=== PATIENT | female | born 1955 | race Caucasian/White ===

== ENCOUNTER → 2016-09-11 | Outpatient (CLI) | payer OTHER ==
--- NOTE | 2016-09-11 18:07 | US ---
EXAMINATION TYPE: US pelvic complete DATE OF EXAM: 09/11/2016 COMPARISON: NONE CLINICAL HISTORY: D25.9 Fibroids. TECHNIQUE: Transabdominal (TA) Date of LMP: Post menopausal EXAM MEASUREMENTS: Uterus: 11.3 x 6.5 x 5.7 cm Endometrial Stripe: 0.6 cm Right Ovary: not visualized due to bowel gas, atrophy Left Ovary: not visualized due to bowel gas, atrophy 1.Uterus: Anteverted, several fibroid noted largest measuring 4.8 x4.4 x 3.7cm, exophytic fibroid n oted measuring 2.9 x 3.7 x 3.0cm 2. Endometrium: wnl 3. Right Ovary: not visualized due to bowel gas, atrophy 4. Left Ovary: not visualized due to bowel gas, atrophy 5. Bilateral Adnexa: wnl 6. Posterior cul-de-sac: wnl IMPRESSION: FIBROID UTERUS.
== END ==
LOC: RADUSWWP 15:34
PROVIDERS: ATTEND Obstetrics & Gynecology
DX: D25.9 Leiomyoma of uterus, unspecified (principal)
CPT/HCPCS: 76856

== ENCOUNTER → 2016-10-30 | Outpatient (CLI) | payer OTHER ==
[2016-10-30 17:51] LABS: Basophils % (A) 1 %; CHCM 34.2; Eosinophils # (A) 0.1 k/uL (0-0.7); Eosinophils % (A) 2 %; HCT 38.9 % (34.0-46.0); HDW 3.18; HGB 13.6 gm/dL (11.4-16.0); Luc # (Auto) 0.23; Luc % (Auto) 4; Lymphocytes # (A) 2.1 k/uL (1.0-4.8); Lymphocytes % (A) 36 %; MCH 28.8 pg (25.0-35.0); MCV 82.4 fL (80.0-100.0); Mean Platelet Volume 7.6; Monocytes # (A) 0.4 k/uL (0-1.0); Monocytes % (A) 6 %; Neutrophils % (A) 51 %; RBC 4.72 m/uL (3.80-5.40); RDW 14.5 % (11.5-15.5); WBC 5.9 k/uL (3.8-10.6); WBC (Perox) 6.21
== END | disposition home or self-care (01) ==
LOC: LABPAT 17:09
PROVIDERS: ATTEND Obstetrics & Gynecology
DX: Z01.810 Encounter for preprocedural cardiovascular examination (principal); Z01.812 Encounter for preprocedural laboratory examination
CPT/HCPCS: 85025; 93005

== ENCOUNTER → 2016-10-30 | Outpatient (CLI) | payer OTHER ==
--- NOTE | 2016-10-31 10:36 | ECHOF ---
Referral Reason:R60.0 Edema extremities MEASUREMENTS -------- HEIGHT: 165.1 cm WEIGHT: 82.6 kg BP: 140/78 RVIDd: 3.1 cm (< 3.3) IVSd: 1.2 cm (0.6 - 1.1) LVIDd: 4.2 cm (3.9 - 5.3) LVPWd: 1.1 cm (0.6 - 1.1) IVSs: 1.6 cm LVIDs: 3.0 cm LVPWs: 1.6 cm LA Diam: 3.1 cm (2.7 - 3.8) LAESV Index (A-L): 23.98 ml/m Ao Diam: 3.3 cm (2.0 - 3.7) AV Cusp: 2.3 cm (1.5 - 2.6) MV EXCURSION: 14.577 mm (> 18.000) MV EF SLOPE: 69 mm/s (70 - 150) EPSS: 0.6 cm MV E Silver: 0.62 m/s MV DecT: 236 ms MV A Silver: 0.73 m/s MV E/A Ratio: 0.85 RAP: 5.00 mmHg RVSP: 30.01 mmHg FINDINGS -------- Sinus rhythm. This was a technically good study. The left ventricular size is normal. There is borderline concentric left ventricular hypertrophy. Overall left ventricular systolic function is normal with, an EF between 60 - 65 %. The right ventricle is normal in size. Normal LA size by volume 22+/-6 ml/m2. The right atrium is normal in size. The aortic valve is trileaflet and appears structurally normal. There is trace mitral regurgitation. Mild tricuspid regurgitation present. Right ventricular systolic pressure is normal at < 35 mmHg. Trace/mild (physiologic) pulmonic regurgitation. The aortic root size is normal. Normal inferior vena cava with normal inspiratory collapse consistent with estimated right atrial pressure of 5 mmHg. There is no pericardial effusion. CONCLUSIONS -------- 1. Sinus rhythm. 2. There is trace mitral regurgitation. 3. Mild tricuspid regurgitation present. 4. Right ventricular systolic pressure is normal at < 35 mmHg. 5. Trace/mild (physiologic) pulmonic regurgitation. 6. The aortic root size is normal. 7. Normal inferior vena cava with normal inspiratory collapse consistent with estimated right atrial pressure of 5 mmHg. 8. There is no pericardial effusion. 9. This was a technically good study. 10. The left ventricular size is normal. 11. There is borderline concentric left ventricular hypertrophy. 12. Overall left ventricular systolic function is normal with, an EF between 60 - 65 %. 13. The right ventricle is normal in size. 14. Normal LA size by volume 22+/-6 ml/m2. 15. The right atrium is normal in size. 16. The aortic valve is trileaflet and appears structurally normal. FLOAT OPERATOR: Sona Peña RDCS
== END | disposition home or self-care (01) ==
LOC: RADECHMAIN 16:29
PROVIDERS: ATTEND Internal Medicine Nephrology
DX: I07.1 Rheumatic tricuspid insufficiency (principal)
CPT/HCPCS: 93306

== ENCOUNTER → 2016-11-07 | Day surgery (SDC) | payer OTHER ==
[2016-11-04 10:51] VITALS: BMI 30.2
[~2016-11-07] MED LIST: DEXAMETHASONE SOD PHOSPHATE 10 MG/ML 1 ML VIAL IV ONE; LACTATED RINGERS 1,000 ML IV SCH; LIDOCAINE 1% 20 ML VIAL (10MG/ML) FOR IV START INTRADERMA PRN; LIDOCAINE 1% INJ 10MG/ML (20 ML MDV) ONE; MIDAZOLAM 2 MG/2 ML VIAL ONE; ONDANSETRON 4 MG/2 ML VIAL IVP ONE; PROPOFOL 10 MG/ML 20 ML VIAL IV ONE; Pre Op ABX Message 1 EACH MISC MISCELLANE ONE; SCOPOLAMINE 1.5MG/72HR PATCH TRANSDERM ONE; SUCCINYLCHOLINE CHLORIDE 100 MG/5 ML SYR IV ONE; fentaNYL (PF) 50 MCG/ML 2 ML AMP IV PRN; fentaNYL (PF) 50 MCG/ML 2 ML AMP ONE
--- NOTE | 2016-11-07 08:00 | P.HPOB ---
History of Present Illness H&P Date: 11/07/16 Chief Complaint: Postmenopausal bleeding Michelle is a 60-year-old female who has vaginal bleeding. Ultrasound revealed potential fibroids as well as a mildly thickened endometrium of 6 mm. Due to her bleeding we are proceeding with a date D&C with hysteroscopy. She previously also been noted to have any potential mass on her kidney however this is being managed by another physician. She does believe she has a large fibroid within her uterus we'll hopefully be able to better evaluate that in the operating room. She does note that she thinks she stopped having periods for 5 years ago for a full year but then over the last year or 2 she is had irregular spotting. On physical exam vital signs are stable and afebrile. Heart regular, lungs clear, extremities without pain. Abdomen soft and nontender positive bowel sounds are noted extremities without pain. Pelvic exam was unremarkable with to have a full pelvic exam in the operating room. Assessment post menopause bleeding. Plan D&C with hysteroscopy. Past Medical History Past Medical History: Hyperlipidemia, Hypertension, Osteoarthritis (OA), Renal Disease, Thyroid Disorder Additional Past Medical History / Comment(s): hx: post menopausal vaginal bleeding, varicose veins History of Any Multi-Drug Resistant Organisms: None Reported Past Surgical History: Cholecystectomy, Tubal Ligation Additional Past Surgical History / Comment(s): surgery to remove gallstone post cholecystectomy Past Anesthesia/Blood Transfusion Reactions: No Reported Reaction Smoking Status: Never smoker - Past Family History Mother Family Medical History: No Reported History Medications and Allergies Home Medications Medication Instructions Recorded Confirmed Type Acetaminophen Tab [Tylenol Tab] 500 mg PO Q6H PRN 11/04/16 11/07/16 History Ascorbic Acid [Vitamin C] 1,000 mg PO DAILY 11/04/16 11/04/16 History Aspirin [Adult Low Dose Aspirin EC] 81 mg PO DAILY 11/04/16 11/04/16 History Atenolol 25 mg PO DAILY 11/04/16 11/04/16 History Cholecalciferol (Vitamin D3) 2,000 unit PO DAILY 11/04/16 11/04/16 History [Vitamin D3] Fenofibrate,Micronized 134 mg PO DAILY 11/04/16 11/04/16 History [Fenofibrate] Furosemide [Lasix] 40 mg PO DAILY 11/04/16 11/07/16 History Levothyroxine Sodium 112 mcg PO DAILY 11/04/16 11/04/16 History Magnesium 130 mg PO HS 11/04/16 11/04/16 History Vitamin B Complex 1 each PO DAILY 11/04/16 11/04/16 History Allergies Allergy/AdvReac Type Severity Reaction Status Date / Time acetaminophen [From Lortab] Allergy Rash/Hives Verified 11/04/16 10:16 hydrocodone [From Lortab] Allergy Rash/Hives Verified 11/04/16 10:16 Exam Osteopathic Statement: *. No significant issues noted on an osteopathic structural exam other than those noted in the History and Physical/Consult. - Vital Signs Vital signs: Vital Signs Temp Pulse Resp BP Pulse Ox 11/07/16 07:15 98.0 F 76 18 138/83 97
--- NOTE | 2016-11-07 08:37 | P.OP ---
Date of Procedure: 11/07/16 Preoperative Diagnosis: Post menopausal bleeding Postoperative Diagnosis: Same Procedure(s) Performed: Large quantity of tissue obtained at D&C Anesthesia: YU Surgeon: Jhon Serrano Estimated Blood Loss (ml): 8 Pathology: other (Curettings) Condition: stable Disposition: same day Operative Findings: Large quantity of tissue obtained some of the calcified. Description of Procedure: Patient was taken to the operating suite where a general anesthetic was found be adequate. She was prepped and draped in the normal sterile fashion and placed in the dorsal lithotomy position. Initially a weighted speculum was inserted into the vagina the anterior lip of the cervix was then identified grasped with an Allis clamp and was dilated. Camera was then inserted uterus is noted to be grossly enlarged there was a significant amount of tissue noted and suspected polyp noted within the endometrium. Once this tissue was noted camera was removed and sharp curettings of the endometrium were obtained. Significant quantity of endometrial tissue was obtained. It was sent to pathology. Will have first be seen in 1 week sit we can review pathology report and discuss future therapies. Plan - Discharge Summary New Discharge Prescriptions: New Ibuprofen [Motrin] 600 mg PO Q6HR PRN #30 tab PRN Reason: Pain No Action Acetaminophen Tab [Tylenol Tab] 500 mg PO Q6H PRN PRN Reason: Pain Furosemide [Lasix] 40 mg PO DAILY Vitamin B Complex 1 each PO DAILY Magnesium 130 mg PO HS Levothyroxine Sodium 112 mcg PO DAILY Fenofibrate,Micronized [Fenofibrate] 134 mg PO DAILY Cholecalciferol (Vitamin D3) [Vitamin D3] 2,000 unit PO DAILY Atenolol 25 mg PO DAILY Aspirin [Adult Low Dose Aspirin EC] 81 mg PO DAILY Ascorbic Acid [Vitamin C] 1,000 mg PO DAILY Discharge Medication List Acetaminophen Tab [Tylenol Tab] 500 mg PO Q6H PRN 11/04/16 [History] Ascorbic Acid [Vitamin C] 1,000 mg PO DAILY 11/04/16 [History] Aspirin [Adult Low Dose Aspirin EC] 81 mg PO DAILY 11/04/16 [History] Atenolol 25 mg PO DAILY 11/04/16 [History] Cholecalciferol (Vitamin D3) [Vitamin D3] 2,000 unit PO DAILY 11/04/16 [History] Fenofibrate,Micronized [Fenofibrate] 134 mg PO DAILY 11/04/16 [History] Furosemide [Lasix] 40 mg PO DAILY 11/04/16 [History] Levothyroxine Sodium 112 mcg PO DAILY 11/04/16 [History] Magnesium 130 mg PO HS 11/04/16 [History] Vitamin B Complex 1 each PO DAILY 11/04/16 [History] Ibuprofen [Motrin] 600 mg PO Q6HR PRN #30 tab 11/07/16 [Rx] Follow up Appointment(s)/Referral(s): Jhon Serrano DO [Doctor of Osteopathic Medicine] - 1 Week Activity/Diet/Wound Care/Special Instructions: Heavy lifting, limit stairs and driving and pelvic rest. If any high temperatures, heavy bleeding, or severe pain call my office Discharge Disposition: HOME SELF-CARE
[2016-11-07 08:49] VITALS: TEMP 98.4
[2016-11-07 09:18] VITALS: RESP 16
[2016-11-07 10:04] VITALS: BP 129/81; PULSE 68
== END | disposition home or self-care (01) ==
LOC: OR 06:56
PROVIDERS: ATTEND Obstetrics & Gynecology
DX: C55 Malignant neoplasm of uterus, part unspecified (principal); N85.8 Other specified noninflammatory disorders of uterus; E07.9 Disorder of thyroid, unspecified; M19.90 Unspecified osteoarthritis, unspecified site; E78.5 Hyperlipidemia, unspecified; I12.9 Hypertensive chronic kidney disease with stage 1 through stage 4 chronic kidney disease, or unspecified chronic kidney disease; N18.9 Chronic kidney disease, unspecified; Z79.82 Long term (current) use of aspirin; Z79.899 Other long term (current) drug therapy; Z88.5 Allergy status to narcotic agent
CPT/HCPCS: 88305; J2250; J1100; J2405; J2001; J3010; J0330; J2704

== ENCOUNTER → 2016-11-28 | Outpatient (CLI) | payer OTHER ==
[2016-11-28 16:43] LABS: Blood Urea Nitrogen 22 mg/dL (7-17); Non-African American GFR(MDRD) 51 (>60 ml/min/1.73 sqM)
--- NOTE | 2016-11-28 17:01 | XR ---
EXAMINATION TYPE: XR chest 2V DATE OF EXAM: 11/28/2016 COMPARISON: 03/11/2012 HISTORY: Endometrial cancer TECHNIQUE: Frontal and lateral views of the chest are obtained. FINDINGS: Heart and mediastinum are normal. Lungs are clear. Diaphragm is normal. Bony thorax appear s intact. IMPRESSION: Normal chest. No change.
--- NOTE | 2016-11-29 21:03 | CT ---
EXAMINATION TYPE: CT abdomen pelvis wo/w con DATE OF EXAM: 11/28/2016 COMPARISON: NONE HISTORY: 60-year-old female with uterine cancer TECHNIQUE: Contiguous axial scanning of the abdomen and pelvis before and after administration of 80 mL Visipaque 320 IV contrast. Delayed images through the kidneys and coronal/sagittal reconstruction s performed. CT DLP: 1169.8 mGycm Automated exposure control for dose reduction was used. FINDINGS: The heart is normal size without pericardial effusion. Strandy atelectasis at the left base without p leural effusion. No focal lesion. There is pneumobilia with cholecystectomy clips. Portal venous system is patent. No biliary ductal dilatation identified. Adrenal glands, left kidney, spleen, pancreas appear within normal limits. 3 mm nonobstructive calculus upper pole right kidney and subcentimeter hypodensity lower pole right k idney too small for accurate CT characterization, probable cyst. No dilated small bowel, free fluid, or free air. Normal appendix. Oral contrast has progressed to the proximal third sigmoid. There is mild proximal s igmoid diverticulosis without pericolonic inflammatory change. There is a 4.8 cm partially calcified fibroid along the left anterolateral lower uterine segment ther e is intramural and partially subserosal. There is a large rounded left posterior uterine mass measuring 6.6 cm that appears to distort and dis place the endometrium towards the right. This may be the patient's reported endometrial carcinoma but a large fibroid with partial submucosal component is also possible. Ovaries are visualized. No abnor mal fluid collection in the pelvis or pelvic lymphadenopathy. Patulous anal canal. Bones: Sclerotic focus left femoral neck likely bone island. Mild degenerative changes of both hips. Additio nal degenerative disc disease L5-S1 and facet arthropathy mid to lower lumbar spine. No osseous destr uctive process. IMPRESSION: 1. LARGE 6.6 CM ROUND SOFT TISSUE MASS IN THE LEFT CENTRAL UTERUS DISTORTING AND DISPLACING THE ENDOM ETRIUM TOWARDS THE RIGHT. FINDINGS COULD REPRESENT THE PATIENT'S ENDOMETRIAL CARCINOMA OR A FIBROID W ITH PROMINENT SUBMUCOSAL COMPONENT. 2. ADDITIONAL PARTIALLY CALCIFIED 4.8 CM FIBROID ALONG THE LEFT ANTEROLATERAL LOWER UTERINE SEGMENT. THIS IS INTRAMURAL AND PARTIALLY SUBSEROSAL. 3. NO LYMPHADENOPATHY OR OTHERWISE ANY EVIDENCE FOR METASTATIC DISEASE. 4. STATUS POST CHOLECYSTECTOMY. THERE IS PNEUMOBILIA WHICH MAY RELATE TO PRIOR SPHINCTEROTOMY. CLINIC ALLY CORRELATE. 5. NONOBSTRUCTIVE 3 MM RIGHT RENAL CALCULUS AND SIGMOID DIVERTICULOSIS.
== END | disposition home or self-care (01) ==
LOC: RADCTMAIN 16:08
PROVIDERS: ATTEND Obstetrics & Gynecology
DX: N20.0 Calculus of kidney (principal); C54.1 Malignant neoplasm of endometrium; N85.8 Other specified noninflammatory disorders of uterus; D25.9 Leiomyoma of uterus, unspecified; K57.30 Diverticulosis of large intestine without perforation or abscess without bleeding; K83.8 Other specified diseases of biliary tract; Z90.49 Acquired absence of other specified parts of digestive tract
CPT/HCPCS: 82565; 84520; 71020; 74178; 36415; Q9967

== ENCOUNTER → 2017-03-18 | Outpatient (CLI) | payer OTHER ==
[2017-03-18 17:03] LABS: Calcium 10.8 mg/dL (8.4-10.2); Potassium 3.8 mmol/L (3.5-5.1)
== END | disposition home or self-care (01) ==
LOC: LABWHC1 16:08
PROVIDERS: ATTEND Nurse Practitioner Family
DX: N18.3 Chronic kidney disease, stage 3 (moderate) (principal)
CPT/HCPCS: 36415; 80048

== ENCOUNTER 2017-05-23 17:10 | Emergency (ER) | payer OTHER ==
[2017-05-23 17:30] VITALS: RESP 18
[2017-05-23] MEDS ORDERED: SODIUM CHLORIDE 0.9% 1,000 ML IV ONE (17:40)
[2017-05-23] MEDS ORDERED: RX INFO: IV CONTRAST WAS GIVEN 1 EACH MISC MISCELLANE PRN (17:40)
--- NOTE | 2017-05-23 17:50 | ED ---
ENT HPI - General Chief complaint: Dental/Oral Stated complaint: poss dental abcess Time Seen by Provider: 05/23/17 17:31 Source: patient, RN notes reviewed, old records reviewed Mode of arrival: ambulatory Limitations: no limitations - History of Present Illness Initial comments: This is a 7-year-old female present emergency Department chief complaint of 1 day of swelling to the left side of her face. Patient reports that she has been treated for sinusitis and was started on clindamycin yesterday. She took 2 doses of the antibiotic. She reports that she woke up with some swelling in her face. She reports she went to [facility] and they gave her IM Rocephin and sent here for evaluation. They wanted to rule out a Nurse sinus thrombosis. She denies any pain with extra ocular movements. Denies any changes in vision. She reports she woke up with significant swelling in her face but there is swelling went down after getting Benadryl. She denies any fevers or chills. She reports that she has poor dentition but has no significant 2/5 swollen or inflamed. - Related Data Home Medications Medication Instructions Recorded Confirmed Aspirin [Adult Low Dose Aspirin EC] 81 mg PO HS 11/04/16 05/25/17 Atenolol 25 mg PO DAILY 11/04/16 05/25/17 Cholecalciferol (Vitamin D3) 2,000 unit PO DAILY 11/04/16 05/25/17 [Vitamin D3] Fenofibrate,Micronized 134 mg PO DAILY 11/04/16 05/25/17 [Fenofibrate] Furosemide [Lasix] 40 mg PO DAILY 11/04/16 05/25/17 Levothyroxine Sodium 112 mcg PO DAILY 11/04/16 05/25/17 Vitamin B Complex 1 cap PO DAILY 11/04/16 05/25/17 Ascorbic Acid [Vitamin C] 500 mg PO DAILY 05/23/17 05/25/17 Magnesium Oxide [Mag-Ox] 250 mg PO HS 05/23/17 05/25/17 Potassium Chloride [Klor-Con 20] 20 meq PO DAILY 05/23/17 05/25/17 Allergies Allergy/AdvReac Type Severity Reaction Status Date / Time hydrocodone [From Lortab] Allergy Rash/Hives Verified 05/25/17 11:22 ibuprofen [From Motrin] AdvReac CHRONIC Verified 05/25/17 11:22 KIDNEY DISEASE Review of Systems ROS Statement: Those systems with pertinent positive or pertinent negative responses have been documented in the HPI. ROS Other: All systems not noted in ROS Statement are negative. Past Medical History Past Medical History: Cancer, Hyperlipidemia, Hypertension, Thyroid Disorder Additional Past Medical History / Comment(s): CKD, uterine cancer History of Any Multi-Drug Resistant Organisms: None Reported Past Surgical History: Cholecystectomy, Hysterectomy, Tubal Ligation Additional Past Surgical History / Comment(s): D&C Past Psychological History: No Psychological Hx Reported Smoking Status: Never smoker Past Alcohol Use History: None Reported Past Drug Use History: None Reported General Exam - General Exam Comments Initial Comments: Is a 61-year-old female. Alert and oriented. No distress. Limitations: no limitations General appearance: alert, in no apparent distress Head exam: Present: atraumatic, normocephalic, normal inspection Eye exam: Present: normal appearance, PERRL, EOMI, periorbital swelling ( Inferior left-sided paravertebral swelling.). Absent: scleral icterus, conjunctival injection ENT exam: Present: normal exam, mucous membranes moist, other (Patient has superficial swelling and redness over the left side of her face. Swelling extends up to the inferior orbital area. No pain with extraocular eye movements. Pupils are equal and reactive. ). Absent: normal oropharynx (Poor dentition. No focal abscess noted within the oropharynx to attempt drainage.) Neck exam: Present: normal inspection. Absent: tenderness, meningismus, lymphadenopathy Respiratory exam: Present: normal lung sounds bilaterally. Absent: respiratory distress, wheezes, rales, rhonchi, stridor Cardiovascular Exam: Present: regular rate, normal rhythm, normal heart sounds. Absent: systolic murmur, diastolic murmur, rubs, gallop, clicks GI/Abdominal exam: Present: soft, normal bowel sounds. Absent: distended, tenderness, guarding, rebound, rigid Extremities exam: Present: normal inspection, full ROM, normal capillary refill. Absent: tenderness, pedal edema, joint swelling, calf tenderness Back exam: Present: normal inspection Neurological exam: Present: alert, oriented X3, CN II-XII intact Psychiatric exam: Present: normal affect, normal mood Course Vital Signs 05/23/17 05/23/17 05/23/17 17:24 18:11 19:56 Temperature 97.9 F 98 F 97.5 F L Pulse Rate 77 77 74 Respiratory 18 18 18 Rate Blood Pressure 124/78 123/89 140/67 O2 Sat by Pulse 95 95 97 Oximetry Medical Decision Making - Medical Decision Making 61 year old femael presents with left sided facial swelling and dental pain. Patient was seen at [facility] and given IM rocephin. They sent here here for CT scan. She has evidence of periorbital swelling and left facial cellulitis. Patient started on clindamycin from [facility], no pain wiith EOM. Patient CT shows possible small dental abscess, WBC is within normal limitis. Discussed no focal abscess to drain at this time, however patient can be discharged home with dental referral. She will continue clindamycin Rx. Discussed return parameters. - Lab Data Result diagrams: 05/23/17 18:00 05/23/17 18:00 Lab Results 05/23/17 05/23/17 Range/Units 18:00 18:00 WBC 7.2 (3.8-10.6) k/uL RBC 4.73 (3.80-5.40) m/uL Hgb 13.3 (11.4-16.0) gm/dL Hct 39.3 (34.0-46.0) % MCV 83.0 (80.0-100.0) fL MCH 28.1 (25.0-35.0) pg MCHC 33.9 (31.0-37.0) g/dL RDW 15.2 (11.5-15.5) % Plt Count 185 (150-450) k/uL Neutrophils % 79 % Lymphocytes % 10 % Monocytes % 7 % Eosinophils % 2 % Basophils % 0 % Neutrophils # 5.6 (1.3-7.7) k/uL Lymphocytes # 0.7 L (1.0-4.8) k/uL Monocytes # 0.5 (0-1.0) k/uL Eosinophils # 0.2 (0-0.7) k/uL Basophils # 0.0 (0-0.2) k/uL Sodium 144 (137-145) mmol/L Potassium 4.0 (3.5-5.1) mmol/L Chloride 104 (98-107) mmol/L Carbon Dioxide 27 (22-30) mmol/L Anion Gap 13 mmol/L BUN 24 H (7-17) mg/dL Creatinine 1.30 H (0.52-1.04) mg/dL Est GFR (CKD-EPI)AfAm 52 (>60 ml/min/1.73 sqM) Est GFR (CKD-EPI)NonAf 45 (>60 ml/min/1.73 sqM) Glucose 82 (74-99) mg/dL Calcium 10.7 H (8.4-10.2) mg/dL - Radiology Data Radiology results: report reviewed CT facial bones with contrast shows Moderate soft tissue infection or cellulitis to left cheek without extension possibly related to dental periodical abscess. Although abscess is not well defined. Disposition Clinical Impression: Facial cellulitis Disposition: HOME SELF-CARE Condition: Good Instructions: Dental Abscess (ED), Cellulitis (ED) Additional Instructions: [facility] [address] [place] [address] [phone] (existing clients only) For new clients: [phone] 1st consult: $50 (includes Xrays) Usually 30% less then private dentist for visits after. of Dental School Have to pay $50 for Xrays anmd rest is covered. [phone] Patient is to ensure that she is taking her entire antibiotic prescription. Continue Motrin Tylenol for pain and discomfort. Also Benadryl may help with the swelling. If you have no improvement within the next 24-48 hours patient is to return. Referrals: Damian Siegel MD [Primary Care Provider] - 1-2 days Time of Disposition: 19:40
[2017-05-23 18:20] LABS: Basophils % (A) 0 %; Eosinophils # (A) 0.2 k/uL (0-0.7); Eosinophils % (A) 2 %; HCT 39.3 % (34.0-46.0); HGB 13.3 gm/dL (11.4-16.0); Lymphocytes # (A) 0.7 k/uL (1.0-4.8); Lymphocytes % (A) 10 %; MCH 28.1 pg (25.0-35.0); MCHC 33.9 g/dL (31.0-37.0); Monocytes # (A) 0.5 k/uL (0-1.0); Monocytes % (A) 7 %; Neutrophils # (A) 5.6 k/uL (1.3-7.7); Neutrophils % (A) 79 %; Platelet Count 185 k/uL (150-450); RBC 4.73 m/uL (3.80-5.40); RDW 15.2 % (11.5-15.5); WBC 7.2 k/uL (3.8-10.6)
[2017-05-23 18:31] LABS: Calcium 10.7 mg/dL (8.4-10.2)
--- NOTE | 2017-05-23 19:02 | CT ---
EXAMINATION TYPE: CT facial bones w con DATE OF EXAM: 05/23/2017 COMPARISON: NONE HISTORY: Left sided facial swelling, poss dental abscess CT DLP: 723.5 mGycm Automated exposure control for dose reduction was used. CONTRAST: CT scan of the facial bones is performed with IV Contrast, patient injected with 80 mL of Isovue 300. TECHNIQUE: CT scan of the facial bones is performed with IV contrast, axial images are obtained, gwendolyn nal reformatted images are also reviewed. FINDINGS: There are absent molar teeth bilaterally in the mandible. There is moderate fat stranding l eft mandibular level anterolaterally. No well-formed fluid collection is seen. There is extension to the left preorbital region inferior aspect seen best axial image 54 with asymmetric fat stranding and soft tissue swelling. Intraconal fat is preserved. Globes are intact. There is symmetric lucency at level of second premolar tooth bilaterally likely reflecting prominent alveolar nerve foramen. Cavita ry fillings causing streak artifact are seen and second premolar teeth bilaterally. There is mild mucosal thickening inferior left maxillary sinus otherwise paranasal sinuses are clear. Nasal septum is deviated to right of midline. Visualized brain parenchyma shows symmetric frontal lo be atrophy. Visualized airway is patent. There is large cavity involving the right canine tooth coronal image 13 and axial image 33. There are multiple crowns and cavitary fillings in the maxillary teeth. IMPRESSION: There is moderate soft tissue infection or cellulitis left cheek with inferior preorbital extension possibly related to dental periapical abscess though abscess is not well visualized.
[2017-05-23 19:57] VITALS: BP 140/67; PULSE 74; TEMP 97.5
== END 2017-05-23 19:57 | disposition home or self-care (01) ==
LOC: EC 17:10
DX: L03.211 Cellulitis of face (principal); E78.5 Hyperlipidemia, unspecified; E07.9 Disorder of thyroid, unspecified; I12.9 Hypertensive chronic kidney disease with stage 1 through stage 4 chronic kidney disease, or unspecified chronic kidney disease; N18.9 Chronic kidney disease, unspecified; Z85.41 Personal history of malignant neoplasm of cervix uteri; Z79.82 Long term (current) use of aspirin; Z79.899 Other long term (current) drug therapy; Z88.5 Allergy status to narcotic agent; Z88.6 Allergy status to analgesic agent
CPT/HCPCS: 99284; 96360; 36415; 80048; 85025; 87040; 70487; Q9967

== ENCOUNTER 2017-05-25 11:03 | Emergency (ER) | payer OTHER ==
[2017-05-25] MEDS ORDERED: cefTRIAXone IN SWFI 1,000 MG/10 ML SYRINGE IVP STA (12:12)
--- NOTE | 2017-05-25 12:12 | ED ---
ENT HPI - General Chief complaint: Dental/Oral Stated complaint: FACIAL SWELLING Time Seen by Provider: 05/25/17 11:19 Source: patient, RN notes reviewed, old records reviewed Mode of arrival: ambulatory Limitations: no limitations - History of Present Illness Initial comments: This is a 7-year-old female presents department for reevaluation over dental pain and patient swelling. Patient was seen in the emergency department by myself 2 days ago. That she's a facial cellulitis and possible dental abscess. Patient was discharged on clindamycin. She reports that the swelling on her face has subsided. She came today because she started some drainage from her tooth. She is concerned because of the drainage was purulent and foul tasting. - Related Data Home Medications Medication Instructions Recorded Confirmed Aspirin [Adult Low Dose Aspirin EC] 81 mg PO HS 11/04/16 05/25/17 Atenolol 25 mg PO DAILY 11/04/16 05/25/17 Cholecalciferol (Vitamin D3) 2,000 unit PO DAILY 11/04/16 05/25/17 [Vitamin D3] Fenofibrate,Micronized 134 mg PO DAILY 11/04/16 05/25/17 [Fenofibrate] Furosemide [Lasix] 40 mg PO DAILY 11/04/16 05/25/17 Levothyroxine Sodium 112 mcg PO DAILY 11/04/16 05/25/17 Vitamin B Complex 1 cap PO DAILY 11/04/16 05/25/17 Ascorbic Acid [Vitamin C] 500 mg PO DAILY 05/23/17 05/25/17 Magnesium Oxide [Mag-Ox] 250 mg PO HS 05/23/17 05/25/17 Potassium Chloride [Klor-Con 20] 20 meq PO DAILY 05/23/17 05/25/17 Allergies Allergy/AdvReac Type Severity Reaction Status Date / Time hydrocodone [From Lortab] Allergy Rash/Hives Verified 05/25/17 11:22 ibuprofen [From Motrin] AdvReac CHRONIC Verified 05/25/17 11:22 KIDNEY DISEASE Review of Systems ROS Statement: Those systems with pertinent positive or pertinent negative responses have been documented in the HPI. ROS Other: All systems not noted in ROS Statement are negative. Past Medical History Past Medical History: Cancer, Hyperlipidemia, Hypertension, Thyroid Disorder Additional Past Medical History / Comment(s): CKD, uterine cancer History of Any Multi-Drug Resistant Organisms: None Reported Past Surgical History: Cholecystectomy, Hysterectomy, Tubal Ligation Additional Past Surgical History / Comment(s): D&C gall stone removal Past Psychological History: No Psychological Hx Reported Smoking Status: Never smoker Past Alcohol Use History: None Reported Past Drug Use History: None Reported General Exam - General Exam Comments Initial Comments: 7-year-old female. No distress. Limitations: no limitations General appearance: alert, in no apparent distress Head exam: Present: atraumatic, normocephalic, normal inspection Eye exam: Present: normal appearance, PERRL, EOMI. Absent: scleral icterus, conjunctival injection, periorbital swelling ENT exam: Present: normal exam, normal oropharynx, mucous membranes moist, other (Patient has evidence of infected tooth #11. The facial cellulitis is resolving. No evidence of periorbital cellulitis.) Neck exam: Present: normal inspection. Absent: tenderness, meningismus, lymphadenopathy Respiratory exam: Present: normal lung sounds bilaterally. Absent: respiratory distress, wheezes, rales, rhonchi, stridor Cardiovascular Exam: Present: regular rate, normal rhythm, normal heart sounds. Absent: systolic murmur, diastolic murmur, rubs, gallop, clicks GI/Abdominal exam: Present: soft, normal bowel sounds. Absent: distended, tenderness, guarding, rebound, rigid Neurological exam: Present: alert, oriented X3, CN II-XII intact Psychiatric exam: Present: normal affect, normal mood Skin exam: Present: warm, dry, intact, normal color. Absent: rash Course Vital Signs 05/25/17 05/25/17 11:11 12:55 Temperature 97.4 F L 98.0 F Pulse Rate 73 60 Respiratory 187 H 14 Rate Blood Pressure 149/92 132/85 O2 Sat by Pulse 97 97 Oximetry Medical Decision Making - Medical Decision Making 7-year-old feel presents emergency Department chief complaint of drainage around tooth #11. She was diagnosed with facial cellulitis and dental abscess a few days ago. Started on clindamycin. She states that she's pressure teeth she felt a burst in her mouth and had a foul taste afterward. She reports that her cellulitis and swelling is diminishing at this time. Denies any fever or chills. Patient does have what appears to be a popped abscess around tooth # 11. Patient was given IV Rocephin for further antibiotic. Discussed she needs to continue clindamycin. Patient's white blood cell count is normal. All questions answered and return parameters were discussed. - Lab Data Result diagrams: 05/25/17 11:35 05/25/17 11:35 Lab Results 05/25/17 05/25/17 Range/Units 11:35 11:35 WBC 5.3 (3.8-10.6) k/uL RBC 4.44 (3.80-5.40) m/uL Hgb 12.6 (11.4-16.0) gm/dL Hct 36.9 (34.0-46.0) % MCV 83.1 (80.0-100.0) fL MCH 28.4 (25.0-35.0) pg MCHC 34.2 (31.0-37.0) g/dL RDW 15.0 (11.5-15.5) % Plt Count 207 (150-450) k/uL Neutrophils % 77 % Lymphocytes % 11 % Monocytes % 6 % Eosinophils % 4 % Basophils % 0 % Neutrophils # 4.1 (1.3-7.7) k/uL Lymphocytes # 0.6 L (1.0-4.8) k/uL Monocytes # 0.3 (0-1.0) k/uL Eosinophils # 0.2 (0-0.7) k/uL Basophils # 0.0 (0-0.2) k/uL Sodium 143 (137-145) mmol/L Potassium 4.2 (3.5-5.1) mmol/L Chloride 103 (98-107) mmol/L Carbon Dioxide 28 (22-30) mmol/L Anion Gap 12 mmol/L BUN 22 H (7-17) mg/dL Creatinine 1.16 H (0.52-1.04) mg/dL Est GFR (CKD-EPI)AfAm 59 (>60 ml/min/1.73 sqM) Est GFR (CKD-EPI)NonAf 52 (>60 ml/min/1.73 sqM) Glucose 85 (74-99) mg/dL Calcium 10.3 H (8.4-10.2) mg/dL Disposition Clinical Impression: Dental abscess Disposition: HOME SELF-CARE Condition: Good Instructions: Dental Abscess (ED) Additional Instructions: Patient advised to continue the clindamycin. Follow-up with dental clinic. Allow abscess to drain. Do shahnazine and water rinses frequently. [facility] [address] [place] [address] [phone] (existing clients only) For new clients: [phone] 1st consult: $50 (includes Xrays) Usually 30% less then private dentist for visits after. [employer] Have to pay $50 for Xrays anmd rest is covered. [phone] Referrals: Damian Siegel MD [Primary Care Provider] - 1-2 days Time of Disposition: 12:57
[2017-05-25 12:39] LABS: Calcium 10.3 mg/dL (8.4-10.2); Potassium 4.2 mmol/L (3.5-5.1)
[2017-05-25 12:48] LABS: Basophils % (A) 0 %; Eosinophils # (A) 0.2 k/uL (0-0.7); Eosinophils % (A) 4 %; HCT 36.9 % (34.0-46.0); HGB 12.6 gm/dL (11.4-16.0); Lymphocytes # (A) 0.6 k/uL (1.0-4.8); Lymphocytes % (A) 11 %; MCH 28.4 pg (25.0-35.0); MCHC 34.2 g/dL (31.0-37.0); MCV 83.1 fL (80.0-100.0); Mean Platelet Volume 7.5; Monocytes # (A) 0.3 k/uL (0-1.0); Monocytes % (A) 6 %; Neutrophils # (A) 4.1 k/uL (1.3-7.7); Neutrophils % (A) 77 %; Platelet Count 207 k/uL (150-450); RBC 4.44 m/uL (3.80-5.40); WBC 5.3 k/uL (3.8-10.6)
[2017-05-25 12:56] VITALS: BP 132/85; PULSE 60; RESP 14
[2017-05-25 12:57] VITALS: TEMP 98
== END 2017-05-25 13:33 | disposition home or self-care (01) ==
LOC: EC 11:03
DX: K04.7 Periapical abscess without sinus (principal); L03.211 Cellulitis of face; E07.9 Disorder of thyroid, unspecified; I10 Essential (primary) hypertension; Z88.5 Allergy status to narcotic agent; Z88.6 Allergy status to analgesic agent; Z79.82 Long term (current) use of aspirin; Z79.899 Other long term (current) drug therapy
CPT/HCPCS: 96374; 99283; 36415; 80048; 85025; J0696

== ENCOUNTER → 2017-10-05 | Outpatient (CLI) | payer OTHER ==
--- NOTE | 2017-10-05 21:26 | CT ---
EXAMINATION TYPE: CT ChestAbdPelvis w con DATE OF EXAM: 10/05/2017 COMPARISON: CT abdomen and pelvis November 28, 2016. HISTORY: Endometrial cancer. CT DLP: 900.5 mGycm. Automated Exposure Control for Dose Reduction was Utilized. CONTRAST: CT scan of the thorax, abdomen and pelvis is performed with oral and with IV Contrast, patient inject ed with 80 mL of Isovue 300. FINDINGS: LUNGS: The lungs are grossly clear, there is no concerning parenchymal mass or nodule identified. T here is no pleural effusion or pneumothorax seen. The tracheobronchial tree is patent. MEDIASTINUM: There are no greater than 1 cm hilar or mediastinal lymph nodes. No pericardial effusi on is seen. OTHER: Dense fibroglandular tissue is noted throughout both breasts. LIVER/GB: Liver remains diffusely low dense consistent with fatty infiltration. Cholecystectomy clips are redemonstrated. Central intrahepatic pneumobilia is again seen. PANCREAS: No significant abnormality is seen. SPLEEN: No significant abnormality is seen. ADRENALS: No significant abnormality is seen. KIDNEYS: Stable 2 mm calculus midpole level right kidney posteriorly axial image 68. Symmetric cortic al medullary uptake and excretion from both kidneys without evidence of hydronephrosis bilaterally. BOWEL: The oral contrast reaches level of proximal transverse colon. Normal-appearing appendix is see n from base of cecum. There is no suspicious small or large bowel dilatation. There are a few scatter ed diverticula throughout the colon. GENITAL ORGANS: Uterus is surgically absent. A few scattered pelvic phleboliths are seen. LYMPH NODES: No greater than 1cm abdominal or pelvic lymph nodes are appreciated. OSSEOUS STRUCTURES: Some facet arthropathy lower lumbar levels is present. Stable small sclerotic foc us left femoral neck coronal image 50. No new osseous lesions are evident. OTHER: No significant additional abnormality is seen. IMPRESSION: Interval hysterectomy. No suspicious new mass or adenopathy is identified to suggest meta static malignancy.
== END | disposition home or self-care (01) ==
LOC: RADCTMAIN 16:39
PROVIDERS: ATTEND Obstetrics & Gynecology
DX: C54.1 Malignant neoplasm of endometrium (principal); Z90.710 Acquired absence of both cervix and uterus
CPT/HCPCS: 82565; 84520; 71260; 74177; 36415; Q9967

== ENCOUNTER → 2017-12-03 | Outpatient (CLI) | payer OTHER ==
--- NOTE | 2017-12-04 09:35 | NM ---
EXAMINATION TYPE: NM parathyroid w/spect DATE OF EXAM: 12/03/2017 COMPARISON: NONE HISTORY: Hx of Hypercalcemia. Fatigue. TECHNIQUE: Following administration of 23.8 mCi Tc99m Sestamibi. Anterior projection images of the neck and ches t were obtained 10 minutes and 3 hours post injection. SPECT images of the neck and chest were obtai silver and reconstructed in three axes. FINDINGS: There is heterogenous uptake noted throughout the thyroid gland on the immediate radiotracer images. The subsequent 3 hour delayed images reveal focal areas of increased uptake overlying the upper thyro id lobes bilaterally which may reflect parathyroid adenomas. This is seen best on the SPECT images. N o mediastinal uptake is identified at this time. IMPRESSION: Findings suggest parathyroid adenomas upper poles of the thyroid lobes bilaterally. Correlate clinica lly.
== END | disposition home or self-care (01) ==
LOC: RADNMMAIN 11:25
PROVIDERS: ATTEND Internal Medicine Nephrology
DX: E21.0 Primary hyperparathyroidism (principal)
CPT/HCPCS: 78071; A9500

== ENCOUNTER → 2018-04-19 | Outpatient (CLI) | payer OTHER ==
--- NOTE | 2018-04-19 17:48 | CT ---
EXAMINATION TYPE: CT abdomen pelvis w con DATE OF EXAM: 04/19/2018 HISTORY: Pelvic pain, history of uterine cancer. CT DLP: 812.9mGycm Automated Exposure Control for Dose Reduction was Utilized. CONTRAST: CT scan of the abdomen and pelvis is performed with IV Contrast, patient injected with 80ml mL of Iso emma 300. COMPARISON: CT abdomen pelvis October 05, 2017 FINDINGS: LUNG BASES: Heart size is stable and upper limits of normal. LIVER/GB: Cholecystectomy clips are redemonstrated. Liver remains diffusely low dense consistent with fatty infiltration. Some central pneumobilia is again seen. PANCREAS: No significant abnormality is seen. SPLEEN: No significant abnormality is seen. ADRENALS: No significant abnormality is seen. KIDNEYS: Stable 3 mm calculus posteriorly upper to mid pole level right kidney axial image 37. BOWEL: Oral contrast reaches level of hepatic flexure. There is no suspicious small or large bowel di latation. Scattered pelvic phleboliths are seen bilaterally. Normal-appearing appendix seen lateral m argin of cecum coronal image 48 contrast filled. UTERUS/ADNEXA: Uterus is surgically absent similar to prior. LYMPH NODES: No greater than 1cm abdominal or pelvic lymph nodes are appreciated. OSSEOUS STRUCTURES: Severe disc space narrowing with vacuum disc phenomenon L5-S1 level is redemonstr ated. Stable sclerotic focus left femoral neck coronal image 52 favors benign bone island. Some facet arthropathy lower lumbar spine is redemonstrated. OTHER: No significant additional abnormality is seen. IMPRESSION: No significant new or acute finding is seen to account for patient's clinical symptoms of pelvic pain.
== END | disposition home or self-care (01) ==
LOC: RADCTMAIN 15:57
PROVIDERS: ATTEND Obstetrics & Gynecology
DX: C54.1 Malignant neoplasm of endometrium (principal)
CPT/HCPCS: 74177; Q9967

== ENCOUNTER → 2018-11-09 | Outpatient (CLI) | payer OTHER ==
--- NOTE | 2018-11-10 08:53 | CT ---
EXAMINATION TYPE: CT ChestAbdPelvis w con DATE OF EXAM: 11/09/2018 COMPARISON: CT abdomen and pelvis April 19, 2018 and older CTs HISTORY: Endometrial cancer progress study. CT DLP: 773.7 mGycm. Automated Exposure Control for Dose Reduction was Utilized. CONTRAST: CT scan of the thorax, abdomen and pelvis is performed with oral and with IV Contrast, patient inject ed with 80cc mL of Isovue 300. FINDINGS: LUNGS: Motion artifact degradation is seen making evaluation suboptimal particularly for subcentimete r nodules for reference upper lungs axial images 9 through 20. No suspicious masses are seen. Lungs a re clear without pleural effusion or pneumothorax. MEDIASTINUM: There are no greater than 1 cm hilar or mediastinal lymph nodes. No cardiomegaly or pe ricardial effusion is seen. LIVER/GB: Cholecystectomy clips are redemonstrated. Liver remains low dense consistent with diffuse f atty infiltration. Central pneumobilia redemonstrated. PANCREAS: No significant abnormality is seen. SPLEEN: No significant abnormality is seen. ADRENALS: No significant abnormality is seen. KIDNEYS: Stable subcentimeter cyst anterolaterally mid to lower pole of the right kidney axial image 73. Stable 2 mm calculus posteriorly upper midpole level right kidney approximately 65. Circumaortic left renal vein which is normal variant. BOWEL: Oral contrast reaches the level of the distal transverse colon. Slightly suboptimal evaluation of distal ball. No suspicious small or large bowel dilatation. Occasional scattered colonic divertic lorelei most prominent in the sigmoid colon. No convincing CT evidence for acute diverticulitis. GENITAL ORGANS: Uterus is surgically absent. Occasional pelvic phleboliths. No new suspicious pelvic mass. LYMPH NODES: No greater than 1cm abdominal or pelvic lymph nodes are appreciated. OSSEOUS STRUCTURES: Stable sclerotic focus left femur femoral neck coronal image 45 favoring benign b one island. Mild to moderate degenerative change of both hips. Multilevel disc space narrowing lumbar spine moderate to severe at lumbosacral junction with vacuum disc phenomenon redemonstrated. OTHER: No significant additional abnormality is seen. IMPRESSION: No new mass or adenopathy identified to suggest neoplastic recurrence.
== END | disposition home or self-care (01) ==
LOC: RADCTMAIN 15:39
PROVIDERS: ATTEND Obstetrics & Gynecology
DX: C54.1 Malignant neoplasm of endometrium (principal)
CPT/HCPCS: 82565; 84520; 71260; 74177; 36415; Q9967

== ENCOUNTER 2020-10-13 20:35 | Emergency (ER) | payer OTHER ==
[2020-10-13 20:44] VITALS: RESP 18; TEMP 98.7
--- NOTE | 2020-10-13 21:07 | ED ---
ENT HPI - General Chief complaint: Dental/Oral Stated complaint: mouth swelling Time Seen by Provider: 10/13/20 20:51 Source: patient Mode of arrival: ambulatory Limitations: no limitations - History of Present Illness Initial comments: 64-year-old female patient presents to the emergency department today for evaluation of left upper dental pain and facial swelling. States symptoms started yesterday and have worsened today. States she feels like her gums are swelling as well. Denies any fever or chills. Denies any trismus or difficulty swelling. Denies any nausea or vomiting. - Related Data Home Medications Medication Instructions Recorded Confirmed Aspirin [Adult Low Dose Aspirin EC] 81 mg PO HS 11/04/16 05/25/17 Cholecalciferol (Vitamin D3) 2,000 unit PO DAILY 11/04/16 05/25/17 [Vitamin D3] Fenofibrate,Micronized 134 mg PO DAILY 11/04/16 05/25/17 [Fenofibrate] Furosemide [Lasix] 40 mg PO DAILY 11/04/16 05/25/17 Levothyroxine Sodium 112 mcg PO DAILY 11/04/16 05/25/17 Vitamin B Complex 1 cap PO DAILY 11/04/16 05/25/17 atenoloL 25 mg PO DAILY 11/04/16 05/25/17 Ascorbic Acid [Vitamin C] 500 mg PO DAILY 05/23/17 05/25/17 Magnesium Oxide [Mag-Ox] 250 mg PO HS 05/23/17 05/25/17 Potassium Chloride [Klor-Con 20] 20 meq PO DAILY 05/23/17 05/25/17 Previous Rx's Medication Instructions Recorded Amoxic-Pot Clav 875-125Mg 1 tab PO Q12HR #20 tablet 10/13/20 [Augmentin 875-125] Allergies Allergy/AdvReac Type Severity Reaction Status Date / Time hydrocodone [From Lortab] Allergy Rash/Hives Verified 10/13/20 20:44 ibuprofen [From Motrin] AdvReac CHRONIC Verified 10/13/20 20:44 KIDNEY DISEASE Review of Systems ROS Statement: Those systems with pertinent positive or pertinent negative responses have been documented in the HPI. ROS Other: All systems not noted in ROS Statement are negative. Past Medical History Past Medical History: Cancer, Hyperlipidemia, Hypertension, Thyroid Disorder Additional Past Medical History / Comment(s): CKD, uterine cancer History of Any Multi-Drug Resistant Organisms: None Reported Past Surgical History: Cholecystectomy, Hysterectomy, Tubal Ligation Additional Past Surgical History / Comment(s): D&C gall stone removal Past Psychological History: No Psychological Hx Reported Smoking Status: Never smoker Past Alcohol Use History: None Reported Past Drug Use History: None Reported General Exam Limitations: no limitations General appearance: alert, in no apparent distress, other (This is a well- developed, well-nourished adult female patient in no acute distress. Vital signs upon presentation are temperature 98.7F, pulse 91, respirations 18, blood pressure 140/83, pulse ox 95% on room air.) ENT exam: Present: mucous membranes moist, other (Gingival erythema and hyperplasia, very poor dentition with multiple broken teeth down to the gumline. No evidence for drainable abscess.) Respiratory exam: Present: normal lung sounds bilaterally. Absent: respiratory distress, wheezes, rales, rhonchi, stridor Cardiovascular Exam: Present: regular rate, normal rhythm, normal heart sounds. Absent: systolic murmur, diastolic murmur, rubs, gallop, clicks Neurological exam: Present: alert, oriented X3, CN II-XII intact Psychiatric exam: Present: normal affect, normal mood Skin exam: Present: warm, dry, intact, normal color. Absent: rash Course Vital Signs 10/13/20 10/13/20 20:42 21:09 Temperature 98.7 F Pulse Rate 91 85 Respiratory 18 18 Rate Blood Pressure 140/83 148/90 O2 Sat by Pulse 95 96 Oximetry Medical Decision Making - Medical Decision Making 64-year-old female patient presents to the emergency department today for evaluation of left upper dental pain and swelling. Physical examination did reveal very poor dentition no evidence for drainable abscess. She was started on Augmentin given Tylenol codeine starter pack. She is instructed to follow-up with dentistry as soon as possible. Return parameters were discussed in detail. She verbalizes understanding and agrees with this plan. Pending is Dr. Puri. Disposition Clinical Impression: Dental abscess Disposition: HOME SELF-CARE Condition: Good Instructions (If sedation given, give patient instructions): Dental Abscess (ED), Toothache (ED) Additional Instructions: Complete antibiotics in full. Follow up with dentist for evaluation as soon as possible. Return for any new, worsening, or concerning symptoms. Prescriptions: Amoxic-Pot Clav 875-125Mg [Augmentin 875-125] 1 tab PO Q12HR #20 tablet Is patient prescribed a controlled substance at d/c from ED?: No Referrals: Damian Siegel MD [Primary Care Provider] - 1-2 days Time of Disposition: 21:06
[2020-10-13 21:10] VITALS: BP 148/90; PULSE 85
[2020-10-13] MEDS: ACET/COD 300 MG/30 MG STARTER PACK 6 TAB BTL PO STA (21:11)
[2020-10-13] MEDS: AMOXIC-POT CLAV 875MG STARTER PACK 2 TAB BTL PO STA (21:11)
== END 2020-10-13 21:16 | disposition home or self-care (01) ==
LOC: EC 20:35
DX: K04.7 Periapical abscess without sinus (principal); S02.5XXA Fracture of tooth (traumatic), initial encounter for closed fracture; I12.9 Hypertensive chronic kidney disease with stage 1 through stage 4 chronic kidney disease, or unspecified chronic kidney disease; N18.9 Chronic kidney disease, unspecified; E78.5 Hyperlipidemia, unspecified; Z79.82 Long term (current) use of aspirin; Z85.42 Personal history of malignant neoplasm of other parts of uterus; Z88.5 Allergy status to narcotic agent; Z88.6 Allergy status to analgesic agent; Z90.49 Acquired absence of other specified parts of digestive tract; X58.XXXA Exposure to other specified factors, initial encounter
CPT/HCPCS: 99282

== ENCOUNTER 2021-02-27 08:13 | Emergency (ER) | payer OTHER ==
[2021-02-27 08:19] VITALS: BP 145/85; PULSE 117; RESP 18; TEMP 97.9
--- NOTE | 2021-02-27 09:29 | ED ---
ENT HPI - General Chief complaint: ENT Stated complaint: Poss Sinus Infection Time Seen by Provider: 02/27/21 08:20 Source: patient, RN notes reviewed Mode of arrival: ambulatory Limitations: no limitations - History of Present Illness Initial comments: 65-year-old female presents emergency Department with chief complaint for upper dentition pain, sinus pressure. Patient states that symptoms started primarily yesterday. Patient states her teeth feel a bit but it was causing some discomfort. Patient denies any fever or chills no cough or cold like symptoms otherwise. - Related Data Home Medications Medication Instructions Recorded Confirmed Aspirin [Adult Low Dose Aspirin EC] 81 mg PO HS 11/04/16 05/25/17 Cholecalciferol (Vitamin D3) 2,000 unit PO DAILY 11/04/16 05/25/17 [Vitamin D3] Fenofibrate,Micronized 134 mg PO DAILY 11/04/16 05/25/17 [Fenofibrate] Furosemide [Lasix] 40 mg PO DAILY 11/04/16 05/25/17 Levothyroxine Sodium 112 mcg PO DAILY 11/04/16 05/25/17 Vitamin B Complex 1 cap PO DAILY 11/04/16 05/25/17 atenoloL 25 mg PO DAILY 11/04/16 05/25/17 Ascorbic Acid [Vitamin C] 500 mg PO DAILY 05/23/17 05/25/17 Magnesium Oxide [Mag-Ox] 250 mg PO HS 05/23/17 05/25/17 Potassium Chloride [Klor-Con 20] 20 meq PO DAILY 05/23/17 05/25/17 Previous Rx's Medication Instructions Recorded Amoxic-Pot Clav 875-125Mg 1 tab PO Q12HR #20 tablet 10/13/20 [Augmentin 875-125] Amoxicillin/Potassium Clav 1 tab PO Q12HR #20 tab 02/27/21 [Augmentin 875-125 Tablet] Allergies Allergy/AdvReac Type Severity Reaction Status Date / Time hydrocodone [From Lortab] Allergy Rash/Hives Verified 02/27/21 08:17 ibuprofen [From Motrin] AdvReac CHRONIC Verified 02/27/21 08:17 KIDNEY DISEASE Review of Systems ROS Statement: Those systems with pertinent positive or pertinent negative responses have been documented in the HPI. ROS Other: All systems not noted in ROS Statement are negative. Past Medical History Past Medical History: Cancer, Hyperlipidemia, Hypertension, Thyroid Disorder Additional Past Medical History / Comment(s): CKD, uterine cancer History of Any Multi-Drug Resistant Organisms: None Reported Past Surgical History: Cholecystectomy, Hysterectomy, Tubal Ligation Additional Past Surgical History / Comment(s): D&C gall stone removal Past Psychological History: No Psychological Hx Reported Smoking Status: Never smoker Past Alcohol Use History: None Reported Past Drug Use History: None Reported General Exam Limitations: no limitations General appearance: alert, in no apparent distress Head exam: Present: atraumatic, normocephalic, normal inspection Eye exam: Present: normal appearance, PERRL, EOMI. Absent: scleral icterus, conjunctival injection, periorbital swelling ENT exam: Present: mucous membranes moist, TM's normal bilaterally, other (sinus tenderness). Absent: normal exam, normal oropharynx (Very poor dentition) Neck exam: Present: normal inspection, full ROM. Absent: tenderness, meningism us, lymphadenopathy Respiratory exam: Present: normal lung sounds bilaterally. Absent: respiratory distress, wheezes, rales, rhonchi, stridor Cardiovascular Exam: Present: regular rate (Heart rate 88 on exam), normal rhythm, normal heart sounds. Absent: systolic murmur, diastolic murmur, rubs, gallop, clicks Course Vital Signs 02/27/21 08:17 Temperature 97.9 F Pulse Rate 117 H Respiratory 18 Rate Blood Pressure 145/85 O2 Sat by Pulse 95 Oximetry Medical Decision Making - Medical Decision Making Patient's symptoms may related to underlying dental infection as she has very poor dentition. Patient started on antibiotics return parameters discussed. - Lab Data Lab Results 02/27/21 Range/Units 08:33 Coronavirus (PCR) Not Detected (Not Detectd) Disposition Clinical Impression: Sinusitis, Dental infection Disposition: HOME SELF-CARE Condition: Stable Instructions (If sedation given, give patient instructions): Sinusitis (ED) Additional Instructions: Please return to the Emergency Department if symptoms worsen or any other concerns. Prescriptions: Amoxicillin/Potassium Clav [Augmentin 875-125 Tablet] 1 tab PO Q12HR #20 tab Is patient prescribed a controlled substance at d/c from ED?: No Referrals: Alysa Hector [Primary Care Provider] - 1-2 days Time of Disposition: 09:29
== END 2021-02-27 09:43 | disposition home or self-care (01) ==
LOC: EC 08:13
DX: J32.9 Chronic sinusitis, unspecified (principal); K04.7 Periapical abscess without sinus; E78.5 Hyperlipidemia, unspecified; I12.9 Hypertensive chronic kidney disease with stage 1 through stage 4 chronic kidney disease, or unspecified chronic kidney disease; N18.9 Chronic kidney disease, unspecified
CPT/HCPCS: 87635; 99283

== ENCOUNTER → 2021-11-08 | Outpatient (CLI) | payer OTHER ==
--- NOTE | 2021-11-08 15:52 | MM ---
Reason for Exam: Follow-up at short interval from prior study. Last mammogram was performed 1 year(s) and 6 month(s) ago. Patient History: Menarche at age 17. First Full-Term at age 22. Left ovary removed at age 60. Right ovary removed at age 60. Hysterectomy at age 60. Postmenopausal. Breast cancer, right, age 63. 09/21/2019, MG pre op needle loc RT on the Right side. Prior Study Comparison: 09/21/2019 Right MG 3D diag mammo w/cad RT - 2, [facility]. 04/30/2020 Bilateral MG 3D diag mammo wo cad JACINDA, [facility]. Tissue Density: The breast tissue is heterogeneously dense. This may lower the sensitivity of mammography. Findings: Analyzed By CAD. Nodular 5 mm asymmetry demonstrated within the posterior central left breast on the MLO view that appears to persist with compression. Benign-appearing bilateral stable calcifications. Postsurgical changes of the right breast. Overall Assessment: Incomplete: need additional imaging evaluation, BI-RAD 0 Management: Diagnostic Breast Ultrasound of the left breast. A clinical breast exam by your physician is recommended on an annual basis and results should be correlated with mammographic findings. This exam should not preclude additional follow-up of suspicious palpable abnormalities. Results were given to the patient verbally at the time of exam. Electronically signed and approved by: Nilo Martnis D.O.
--- NOTE | 2021-11-08 16:07 | USB ---
Reason for Exam: Additional evaluation requested from abnormal screening. Patient History: Menarche at age 17. First Full-Term at age 22. Left ovary removed at age 60. Right ovary removed at age 60. Hysterectomy at age 60. Postmenopausal. Breast cancer, right, age 63. 09/21/2019, MG pre op needle loc RT on the Right side. Technique: Method: Targeted. Prior Study Comparison: 09/21/2019 Right MG 3D diag mammo w/cad RT - 2, [facility]. 04/30/2020 Bilateral MG 3D diag mammo wo cad JACINDA, [facility]. Findings: The upper outer quadrant of the left breast, the axilla of the left breast and the retroareolar of the left breast were scanned. Limited left breast ultrasound with radial/antiradial approach from 12:00 to 3:00 with additional evaluation of the nipple region and axilla. There is a microlobulated anechoic mass with the left breast 6 cm from the nipple at 2:00 measuring 0.7 x 0.5 x 0.7 cm. Questionable posterior acoustic enhancement. No internal vascularity identified. This may represent a cyst. Overall Assessment: Probably benign, BI-RAD 3 Management: Diagnostic Breast Ultrasound of the left breast in 6 months. A clinical breast exam by your physician is recommended on an annual basis and results should be correlated with mammographic findings. Electronically signed and approved by: Nilo Martins D.O.
== END | disposition home or self-care (01) ==
LOC: RADMAMWWP 14:57
PROVIDERS: ATTEND Radiology Radiation Oncology
DX: D05.11 Intraductal carcinoma in situ of right breast (principal); Z78.0 Asymptomatic menopausal state
CPT/HCPCS: 77066

== ENCOUNTER → 2022-02-21 | Outpatient (CLI) | payer MEDICARE, OTHER ==
--- NOTE | 2022-02-21 15:41 | US ---
EXAMINATION TYPE: US kidneys/renal and bladder DATE OF EXAM: 02/21/2022 COMPARISON: NONE CLINICAL HISTORY: N18.31 CHRONIC KIDNEY DISEASE, STAGE 3A. EXAM MEASUREMENTS: Right Kidney: 10.2 x 4.4 x 4.9 cm Left Kidney: 9.7 x 4.1 x 4.4 cm Right Kidney: cyst measuring 1.4 x 1.7 x 1.6cm, echogenic foci possible stones, largest measuring 4m m . Left Kidney: scattered echogenic foci may represent small stones or calcified vessels Bladder: wnl Bilateral Jets seen: no There is no evidence for hydronephrosis at this point in time. Cortical medullary differentiation clay ntained for both kidneys. Echogenic foci within both kidneys with largest in the right kidney measuri ng up to 4 mm. No shadowing identified. No solid contour deforming renal mass identified. The urinary bladder is anechoic. IMPRESSION: 1. No hydronephrosis. 2. Bilateral renal echogenic foci without shadowing which may represent small stones or calcified ve ssels.
== END | disposition home or self-care (01) ==
LOC: RADUSWWP 14:56
PROVIDERS: ATTEND Internal Medicine Nephrology
DX: N18.31 Chronic kidney disease, stage 3a (principal)
CPT/HCPCS: 76770

== ENCOUNTER → 2022-05-12 | Outpatient (CLI) | payer MEDICARE, OTHER ==
--- NOTE | 2022-05-12 09:49 | USB ---
Reason for Exam: Follow-up at short interval from prior study. Patient History: Menarche at age 17. First Full-Term at age 22. Left ovary removed at age 60. Right ovary removed at age 60. Hysterectomy at age 60. Postmenopausal. Breast cancer, right, age 63. 09/05/2019, Ultrasound-Guided Core Biopsy on the Right side. 08/01/2019, Stereotactic Core Biopsy on the Right side. 09/21/2019, MG pre op needle loc RT on the Right side. Technique: Method: Targeted. Prior Study Comparison: 09/21/2019 Right MG 3D diag mammo w/cad RT - 2, [facility]. 04/30/2020 Bilateral MG 3D diag mammo wo cad JACINDA, [facility]. 11/08/2021 Bilateral MG diagnostic mammo w CAD JACINDA, [facility]. Findings: The upper outer quadrant of the left breast, the axilla of the left breast and the retroareolar of the left breast were scanned. Well-circumscribed hypoechoic lesion at the left 2:00 position 6 cm from the nipple persists and is slightly smaller in size and currently measures 6 x 8.5 x 0.6 cm versus 0.6 x 5.5 x 8.65 cm. No new lesions seen.. Overall Assessment: Probably benign, BI-RAD 3 Management: Diagnostic Breast Ultrasound of the left breast in 6 months. A clinical breast exam by your physician is recommended on an annual basis and results should be correlated with mammographic findings. This exam should not preclude additional follow-up of suspicious palpable abnormalities. Results were given to the patient verbally at the time of exam. Electronically signed and approved by: Phillip Gilliam M.D. Radiologis
== END | disposition home or self-care (01) ==
LOC: RADUSWWP 08:53
PROVIDERS: ATTEND Radiology Radiation Oncology
DX: N64.9 Disorder of breast, unspecified (principal); Z08 Encounter for follow-up examination after completed treatment for malignant neoplasm; Z85.42 Personal history of malignant neoplasm of other parts of uterus; Z92.3 Personal history of irradiation; Z78.0 Asymptomatic menopausal state

== ENCOUNTER → 2023-11-12 | Outpatient (CLI) | payer MEDICARE ==
--- NOTE | 2023-11-15 14:05 | MM ---
Reason for Exam: Screening (asymptomatic). Last screening mammogram was performed 12 month(s) ago. Patient History: Menarche at age 17. First Full-Term at age 22. Left ovary removed at age 60. Right ovary removed at age 60. Hysterectomy at age 60. Postmenopausal. Breast cancer, right, age 63. 09/05/2019, Ultrasound-Guided Core Biopsy on the Right side. 08/01/2019, Stereotactic Core Biopsy on the Right side. 09/21/2019, MG pre op needle loc RT on the Right side. Prior Study Comparison: 04/30/2020 Bilateral MG 3D diag mammo wo cad JACINDA, [facility]. 11/08/2021 Bilateral MG diagnostic mammo w CAD JACINDA, [facility]. 11/10/2022 Bilateral MG 3D diag mammo w/cad JACINDA, [facility]. Tissue Density: The breasts are heterogeneously dense, which may obscure small masses. Findings: Analyzed By CAD. The pattern is symmetrical. Multiple calcifications are present. Foreign body within the upper posterior right breast. There is a new 6 mm oval density within the posterior right breast 8 cm in the nipple approximately 1:00 position. Evaluation with ultrasound is recommended. No suspicious groups of microcalcifications, spiculated or lobular masses, architectural distortion or other secondary signs of malignancy are mammographically apparent. Overall Assessment: Incomplete: need additional imaging evaluation, BI-RAD 0 Management: Diagnostic Breast Ultrasound of the right breast. A negative mammogram report should not preclude additional follow up of suspicious palpable abnormalities. Patient should continue monthly self breast exam. A clinical breast exam by your physician is recommended on an annual basis and results should be correlated with mammographic findings. Note on Sushma scores and lifetime risk: 1. A Sushma score greater than 3% is considered moderate risk. If this is the case, consider specialist referral to assess eligibility for a risk reducing agent. 2. If overall lifetime risk for the development of breast cancer is 20% or higher, the patient may qualify for future screening with alternating mammogram and breast MRI. [facility], , 11/15/2023 2:02 PM. Electronically signed and approved by: Pola Cunha D.O. Radiologis
== END | disposition home or self-care (01) ==
LOC: RADMAMWWP 15:43
PROVIDERS: ATTEND Obstetrics & Gynecology
DX: Z12.31 Encounter for screening mammogram for malignant neoplasm of breast
CPT/HCPCS: 77063; 77067

== ENCOUNTER → 2023-11-18 | Outpatient (CLI) | payer MEDICARE ==
--- NOTE | 2023-11-19 13:30 | USB ---
Reason for Exam: Additional evaluation requested from abnormal screening. Patient History: Menarche at age 17. First Full-Term at age 22. Left ovary removed at age 60. Right ovary removed at age 60. Hysterectomy at age 60. Postmenopausal. Breast cancer, right, age 63. 09/05/2019, Ultrasound-Guided Core Biopsy on the Right side. 08/01/2019, Stereotactic Core Biopsy on the Right side. 09/21/2019, MG pre op needle loc RT on the Right side. Technique: Method: Targeted. Prior Study Comparison: 11/08/2021 Bilateral MG diagnostic mammo w CAD JACINDA, [facility]. 11/10/2022 Bilateral MG 3D diag mammo w/cad JACINDA, [facility]. 11/12/2023 Bilateral MG 3D screening mammo w/cad, [facility]. Findings: The upper inner quadrant of the right breast, the axilla of the right breast and the retroareolar of the right breast were scanned. Technique utilized:US breast workup limited RT Image; Ultrasound imaging of: All 4 quadrants, the retroareolar region and axilla. Simple appearing cyst at 1:00 8 cm nipple measuring 5 mm and another cyst also nearby vicinity with peripheral calcification versus biopsy marker seen on mammography. Findings correlate with mammography. Overall Assessment: Benign, BI-RAD 2 Management: Screening Mammogram of both breasts in 1 year. A clinical breast exam by your physician is recommended on an annual basis and results should be correlated with mammographic findings. This exam should not preclude additional follow-up of suspicious palpable abnormalities. Results were given to the patient verbally at the time of exam. [facility], , 11/19/2023 1:27 PM. Electronically signed and approved by: Bernard Kennedy DO
== END | disposition home or self-care (01) ==
LOC: RADUSWWP 14:55
PROVIDERS: ATTEND Obstetrics & Gynecology
DX: R92.8 Other abnormal and inconclusive findings on diagnostic imaging of breast

== ENCOUNTER 2024-04-29 10:31 | Emergency (ER) | payer MEDICARE ==
[2024-04-29 10:37] VITALS: TEMP 97.4
[2024-04-29 11:02] LABS: Basophils % (A) 1 %; Eosinophils # (A) 0.1 k/uL (0-0.7); Eosinophils % (A) 1 %; HCT 48.6 % (34.0-46.0); HGB 15.5 gm/dL (11.4-16.0); Lymphocytes # (A) 2.5 k/uL (1.0-4.8); Lymphocytes % (A) 31 %; MCH 28.7 pg (25.0-35.0); MCHC 31.8 g/dL (31.0-37.0); MCV 90.2 fL (80.0-100.0); Mean Platelet Volume 8.2; Monocytes # (A) 0.5 k/uL (0-1.0); Monocytes % (A) 5 %; Neutrophils # (A) 4.9 k/uL (1.3-7.7); Neutrophils % (A) 60 %; Platelet Count 323 k/uL (150-450); RBC 5.39 m/uL (3.80-5.40); RDW 13.6 % (11.5-15.5); WBC 8.2 k/uL (3.8-10.6)
--- NOTE | 2024-04-29 11:12 | ED ---
Weakness HPI - General Source: patient, family, EMS, RN notes reviewed (Daughter) Mode of arrival: EMS Limitations: no limitations - History of Present Illness MD Complaint: generalized weakness <To Contreras - Last Filed: 04/29/24 11:10> - General Source: patient, family, RN notes reviewed <Mauricio Trujillo - Last Filed: 04/29/24 15:08> - General Chief complaint: Weakness Stated complaint: fatuige Time Seen by Provider: 04/29/24 10:48 - History of Present Illness Initial comments: Quick note: This is a 68-year-old female with history of uterine/breast cancer presenting with daughter for increased weakness starting this morning. Daughter states patient has been sick for the past month and an bed for the past 3 weeks. Patient endorses nausea/vomiting, abdominal pain and lightheadedness/dizziness, especially with position change. Denies fever, chills, chest pain, dyspnea. (To Contreras) Patient is a 68-year-old female who was originally seen as a quick note in the waiting room. Presents for fatigue as well as cough, congestion. Has been ongoing for 1 week. Denies any fevers. Denies nausea or vomiting. Endorses decreased appetite. Denies diarrhea. Denies any chest pain. Has no other acute complaints at this time. Patient does have a remote history of uterine breast cancer s/p radiation and chemo which she is currently not on. Has had on and off again sickness for the last month and increased fatigue for multiple weeks, worse over the last week to few days. No other acute complaints at this time. Presents for further evaluation at this time. Originally seen as a quick note. I evaluate the patient when she was placed in room. (Mauricio Trujillo) - Related Data Home Medications Medication Instructions Recorded Confirmed Aspirin [Adult Low Dose Aspirin EC] 81 mg PO HS 11/04/16 04/10/22 Cholecalciferol (Vitamin D3) 2,000 unit PO DAILY 11/04/16 04/10/22 [Vitamin D3] Fenofibrate,Micronized 145 mg PO DAILY 11/04/16 04/10/22 [Fenofibrate] Furosemide [Lasix] 40 mg PO DAILY 11/04/16 04/10/22 Levothyroxine Sodium 88 mcg PO DAILY 11/04/16 04/10/22 Vitamin B Complex 1 cap PO DAILY 11/04/16 04/10/22 atenoloL 25 mg PO DAILY 11/04/16 04/10/22 Ascorbic Acid [Vitamin C] 500 mg PO DAILY 05/23/17 04/10/22 Magnesium Oxide [Mag-Ox] 250 mg PO HS 05/23/17 04/10/22 Potassium Chloride [Klor-Con 20] 10 meq PO BID 05/23/17 04/10/22 Ferrous Sulfate [Feosol] 325 mg PO DAILY 04/09/22 04/10/22 Pravastatin Sodium [Pravachol] 20 mg PO HS 04/09/22 04/10/22 Tamoxifen Citrate [Nolvadex] 20 mg PO DAILY 04/09/22 04/10/22 Allergies Allergy/AdvReac Type Severity Reaction Status Date / Time hydrocodone [From Lortab] Allergy Rash/Hives Verified 04/29/24 10:37 ibuprofen [From Motrin] AdvReac CHRONIC Verified 04/29/24 10:37 KIDNEY DISEASE Review of Systems ROS Other: All systems not noted in ROS Statement are negative. <To Contreras - Last Filed: 04/29/24 11:10> ROS Other: All systems not noted in ROS Statement are negative. <Mauricio Trujillo - Last Filed: 04/29/24 15:08> ROS Statement: Those systems with pertinent positive or pertinent negative responses have been documented in the HPI. Review of Systems: CONST: Denies fever EYES: Denies blurry vision ENT: Denies nasal congestion C/V: Denies Chest pain RESP: Denies shortness of breath GI: Denies abdominal pain : Denies dysuria SKIN: Denies rash. MSK: Denies joint pain. NEURO: Denies headache (Mauricio Trujillo) Past Medical History Past Medical History: Cancer, Hyperlipidemia, Hypertension, Renal Disease, Thyroid Disorder Additional Past Medical History / Comment(s): CKD, uterine cancer, breast History of Any Multi-Drug Resistant Organisms: None Reported Past Surgical History: Breast Surgery, Cholecystectomy, Hysterectomy, Tubal Ligation Additional Past Surgical History / Comment(s): D&C , gall stone removal, partial mastectomy rt side Past Anesthesia/Blood Transfusion Reactions: No Reported Reaction Additional Past Anesthesia/Blood Transfusion Reaction / Comment(s): slow to wake up Past Psychological History: Anxiety, Depression Smoking Status: Never smoker Past Alcohol Use History: None Reported Past Drug Use History: None Reported <To Contreras - Last Filed: 04/29/24 11:10> General Exam Limitations: no limitations <To Contreras - Last Filed: 04/29/24 11:10> <Mauricio Trujillo - Last Filed: 04/29/24 15:08> - General Exam Comments Initial Comments: Visual Physical Exam Vital signs reviewed General: Well-appearing, nontoxic, no acute distress. Head: Normocephalic, atraumatic Eyes: PERRLA, EOMI ENT: Airway patent Chest: Nonlabored breathing Skin: No visual rash, normal skin tone Neuro: Alert and oriented 3 Musculoskeletal: No gross abnormalities (To Contreras) General: Appears in no acute distress. HEAD: Normal with no signs of head trauma. EYES: PERRLA, EOMI, conjunctiva normal, no discharge. ENT: Hearing grossly intact, normal oropharynx. RESPIRATORY: Clear breath sounds bilaterally. No wheezes, rales, or rhonchi. C/V: Regular rate and rhythm. S1 and S2 auscultated, no edema, peripheral pulses 2+ and intact throughout ABD: Abd is soft, nontender, nondistended EXT: Normal range of motion, no obvious deformity SKIN: No rashes or lesions observed on exposed skin. NEURO: Alert and oriented x 4. Cranial nerves II-XII intact. No focal sensory or strength deficits. GCS of 15. (Mauricio Trujillo) Course Vital Signs 04/29/24 04/29/24 04/29/24 10:34 14:02 14:59 Temperature 97.4 F L Pulse Rate 97 72 73 Respiratory 20 16 18 Rate Blood Pressure 122/74 132/84 148/81 O2 Sat by Pulse 97 96 98 Oximetry Medical Decision Making - Lab Data Result diagrams: 04/29/24 10:48 <To Contreras - Last Filed: 04/29/24 11:10> - Lab Data Result diagrams: 04/29/24 10:48 04/29/24 10:48 <Mauricio Trujillo - Last Filed: 04/29/24 15:08> - Medical Decision Making I completed the quick note portion of this chart signed JOZEF Duarte (To Contreras) Was pt. sent in by a medical professional or institution (Dr., PA, COAL SAMPLE TESTER, urgent care, hospital, or snf...) When possible be specific @ -No Did you speak to anyone other than the patient for history (EMS, parent, family, police, friend...)? What history was obtained from this source @ -No Did you review nursing and triage notes (agree or disagree)? Why? @ -I reviewed and agree with nursing and triage notes Were old charts reviewed (outside hosp., previous admission, EMS record, old EKG, old radiological studies, urgent care reports/EKG's, snf records)? Report findings @ -No old charts were reviewed Differential Diagnosis (chest pain, altered mental status, abdominal pain women, abdominal pain men, vaginal bleeding, weakness, fever, dyspnea, syncope, headache, dizziness, GI bleed, back pain, seizure, CVA, palpatations, mental health, musculoskeletal)? @ -Differential Weakness: Hypoglycemia, shock, sepsis, hyponatremia, anemia, infection, OH, ETOH, adverse medicine reaction, overdose, stroke, this is not meant to be an all-inclusive list. EKG interpreted by me (3pts min.). @ -As above X-rays interpreted by me (1pt min.). @ -Chest x-ray reveals no obvious acute cardiopulmonary process. CT interpreted by me (1pt min.). @ -None done U/S interpreted by me (1pt. min.). @ -None done What testing was considered but not performed or refused? (CT, X-rays, U/S, labs)? Why? @ -None What meds were considered but not given or refused? Why? @ -None Did you discuss the management of the patient with other professionals (professionals i.e. , PA, COAL SAMPLE TESTER, lab, RT, psych nurse, social media community manager, electric transfer operator, teacher, community chest officer, rn case mgr)? Give summary @ -No Was smoking cessation discussed for >3mins.? @ -No Was critical care preformed (if so, how long)? @ -No Were there social determinants of health that impacted care today? How? (Homelessness, low income, unemployed, alcoholism, drug addiction, transportation, low edu. Level, literacy, decrease access to med. care, fpc, rehab)? @ -No Was there de-escalation of care discussed even if they declined (Discuss DNR or withdrawal of care, Hospice)? DNR status @ -No What co-morbidities impacted this encounter? (DM, HTN, Smoking, COPD, CAD, Cancer, CVA, ARF, Chemo, Hep., AIDS, mental health diagnosis, sleep apnea, morbid obesity)? @ -None Was patient admitted / discharged? Hospital course, mention meds given and route, prescriptions, significant lab abnormalities, going to OR and other pertinent info. @ -Patient presents with fatigue and weakness for weeks. Worse over the last few days to week. We have will obtain general workup. Originally seen as a quick note. Workup so far remarkable for normal laboratory studies. Troponin undetectable. I will add on a TSH as well as urinalysis considering her history of hyperthyroidism. She was in agreement this plan. Given and 1 L fluid bolus. Vitals within acceptable limits. EKG shows no signs of acute ischemia. TSH elevated as expected D. Urinalysis unremarkable. At this time I reevaluated the patient. We discussed her workup. Recommended strict follow-up with her PCP in the next 1 to 3 days. No indication for admission at this time. No clear etiology for her fatigue however she has been having cough and congestion and may be a viral syndrome. She expressed u nderstanding was in agreement this plan. I instructed the patient to follow up with their PCP in the next 1-3 days. I explained that the patient should return to the emergency department if they exp erience any worsening symptoms. Strict return precautions were discussed with the patient. The patient expressed understanding of these instructions. I answered all questions that the patient had. The patient was discharged home in good condition with their prescriptions and follow up information. Undiagnosed new problem with uncertain prognosis? @ -No Drug Therapy requiring intensive monitoring for toxicity (Heparin, Nitro, Insulin, Cardizem)? @ -No Were any procedures done? @ -No Diagnosis/symptom? @ -Fatigue, viral syndrome Acute, or Chronic, or Acute on Chronic? @ -Acute Uncomplicated (without systemic symptoms) or Complicated (systemic symptoms)? @ -Uncomplicated Side effects of treatment? @ -No Exacerbation, Progression, or Severe Exacerbation? @ -No Poses a threat to life or bodily function? How? (Chest pain, USA, OH, pneumonia, PE, COPD, DKA, ARF, appy, cholecystitis, CVA, Diverticulitis, Homicidal, Suicidal, threat to staff... and all critical care pts) @ -Unlikely at this time (Mauricio Trujillo) - Lab Data Lab Results 04/29/24 04/29/24 04/29/24 Range/Units 10:48 10:48 10:48 WBC 8.2 (3.8-10.6) k/uL RBC 5.39 (3.80-5.40) m/uL Hgb 15.5 (11.4-16.0) gm/dL Hct 48.6 H (34.0-46.0) % MCV 90.2 (80.0-100.0) fL MCH 28.7 (25.0-35.0) pg MCHC 31.8 (31.0-37.0) g/dL RDW 13.6 (11.5-15.5) % Plt Count 323 (150-450) k/uL MPV 8.2 Neutrophils % 60 % Lymphocytes % 31 % Monocytes % 5 % Eosinophils % 1 % Basophils % 1 % Neutrophils # 4.9 (1.3-7.7) k/uL Lymphocytes # 2.5 (1.0-4.8) k/uL Monocytes # 0.5 (0-1.0) k/uL Eosinophils # 0.1 (0-0.7) k/uL Basophils # 0.0 (0-0.2) k/uL PT 11.5 (10.0-12.5) sec INR 1.0 (<1.2) APTT 22.5 (22.0-30.0) sec Sodium 137 (137-145) mmol/L Potassium 4.2 (3.5-5.1) mmol/L Chloride 102 (98-107) mmol/L Carbon Dioxide 23 (22-30) mmol/L Anion Gap 12 mmol/L BUN 13 (7-17) mg/dL Creatinine 0.89 (0.52-1.04) mg/dL Est GFR (CKD-EPI)AfAm 78 (>60 ml/min/1.73 sqM) Est GFR (CKD-EPI)NonAf 67 (>60 ml/min/1.73 sqM) Glucose 143 H (74-99) mg/dL Calcium 10.4 H (8.4-10.2) mg/dL Magnesium 1.9 (1.6-2.3) mg/dL Total Bilirubin 0.7 (0.2-1.3) mg/dL AST 33 (14-36) U/L ALT 31 (4-34) U/L Alkaline Phosphatase 47 (38-126) U/L Troponin I (0.000-0.034) ng/mL Total Protein 7.4 (6.3-8.2) g/dL Albumin 4.6 (3.5-5.0) g/dL TSH (0.465-4.680) mIU/L Urine Color Urine Appearance (Clear) Urine pH (5.0-8.0) Ur Specific [place] (1.001-1.035) Urine Protein (Negative) Urine Glucose (UA) (Negative) Urine Ketones (Negative) Urine Blood (Negative) Urine Nitrite (Negative) Urine Bilirubin (Negative) Urine Urobilinogen (<2.0) mg/dL Ur Leukocyte Esterase (Negative) Influenza Type A (PCR) (Not Detectd) Influenza Type B (PCR) (Not Detectd) RSV (PCR) (Not Detectd) SARS-CoV-2 (PCR) (Not Detectd) 04/29/24 04/29/24 04/29/24 Range/Units 10:48 10:48 10:48 WBC (3.8-10.6) k/uL RBC (3.80-5.40) m/uL Hgb (11.4-16.0) gm/dL Hct (34.0-46.0) % MCV (80.0-100.0) fL MCH (25.0-35.0) pg MCHC (31.0-37.0) g/dL RDW (11.5-15.5) % Plt Count (150-450) k/uL MPV Neutrophils % % Lymphocytes % % Monocytes % % Eosinophils % % Basophils % % Neutrophils # (1.3-7.7) k/uL Lymphocytes # (1.0-4.8) k/uL Monocytes # (0-1.0) k/uL Eosinophils # (0-0.7) k/uL Basophils # (0-0.2) k/uL PT (10.0-12.5) sec INR (<1.2) APTT (22.0-30.0) sec Sodium (137-145) mmol/L Potassium (3.5-5.1) mmol/L Chloride (98-107) mmol/L Carbon Dioxide (22-30) mmol/L Anion Gap mmol/L BUN (7-17) mg/dL Creatinine (0.52-1.04) mg/dL Est GFR (CKD-EPI)AfAm (>60 ml/min/1.73 sqM) Est GFR (CKD-EPI)NonAf (>60 ml/min/1.73 sqM) Glucose (74-99) mg/dL Calcium (8.4-10.2) mg/dL Magnesium (1.6-2.3) mg/dL Total Bilirubin (0.2-1.3) mg/dL AST (14-36) U/L ALT (4-34) U/L Alkaline Phosphatase (38-126) U/L Troponin I <0.012 (0.000-0.034) ng/mL Total Protein (6.3-8.2) g/dL Albumin (3.5-5.0) g/dL TSH 9.170 H (0.465-4.680) mIU/L Urine Color Urine Appearance (Clear) Urine pH (5.0-8.0) Ur Specific [place] (1.001-1.035) Urine Protein (Negative) Urine Glucose (UA) (Negative) Urine Ketones (Negative) Urine Blood (Negative) Urine Nitrite (Negative) Urine Bilirubin (Negative) Urine Urobilinogen (<2.0) mg/dL Ur Leukocyte Esterase (Negative) Influenza Type A (PCR) Not Detected (Not Detectd) Influenza Type B (PCR) Not Detected (Not Detectd) RSV (PCR) Not Detected (Not Detectd) SARS-CoV-2 (PCR) Not Detected (Not Detectd) 04/29/24 Range/Units 12:54 WBC (3.8-10.6) k/uL RBC (3.80-5.40) m/uL Hgb (11.4-16.0) gm/dL Hct (34.0-46.0) % MCV (80.0-100.0) fL MCH (25.0-35.0) pg MCHC (31.0-37.0) g/dL RDW (11.5-15.5) % Plt Count (150-450) k/uL MPV Neutrophils % % Lymphocytes % % Monocytes % % Eosinophils % % Basophils % % Neutrophils # (1.3-7.7) k/uL Lymphocytes # (1.0-4.8) k/uL Monocytes # (0-1.0) k/uL Eosinophils # (0-0.7) k/uL Basophils # (0-0.2) k/uL PT (10.0-12.5) sec INR (<1.2) APTT (22.0-30.0) sec Sodium (137-145) mmol/L Potassium (3.5-5.1) mmol/L Chloride (98-107) mmol/L Carbon Dioxide (22-30) mmol/L Anion Gap mmol/L BUN (7-17) mg/dL Creatinine (0.52-1.04) mg/dL Est GFR (CKD-EPI)AfAm (>60 ml/min/1.73 sqM) Est GFR (CKD-EPI)NonAf (>60 ml/min/1.73 sqM) Glucose (74-99) mg/dL Calcium (8.4-10.2) mg/dL Magnesium (1.6-2.3) mg/dL Total Bilirubin (0.2-1.3) mg/dL AST (14-36) U/L ALT (4-34) U/L Alkaline Phosphatase (38-126) U/L Troponin I (0.000-0.034) ng/mL Total Protein (6.3-8.2) g/dL Albumin (3.5-5.0) g/dL TSH (0.465-4.680) mIU/L Urine Color Yellow Urine Appearance Clear (Clear) Urine pH 7.0 (5.0-8.0) Ur Specific [place] 1.010 (1.001-1.035) Urine Protein Negative (Negative) Urine Glucose (UA) Negative (Negative) Urine Ketones Negative (Negative) Urine Blood Negative (Negative) Urine Nitrite Negative (Negative) Urine Bilirubin Negative (Negative) Urine Urobilinogen <2.0 (<2.0) mg/dL Ur Leukocyte Esterase Negative (Negative) Influenza Type A (PCR) (Not Detectd) Influenza Type B (PCR) (Not Detectd) RSV (PCR) (Not Detectd) SARS-CoV-2 (PCR) (Not Detectd) Disposition <To Contreras - Last Filed: 04/29/24 11:10> Is patient prescribed a controlled substance at d/c from ED?: No Time of Disposition: 14:45 <Mauricio Trujillo - Last Filed: 04/29/24 15:08> Clinical Impression: Fatigue, Viral syndrome Disposition: HOME SELF-CARE Condition: Good Instructions (If sedation given, give patient instructions): Fatigue (ED) Additional Instructions: Diagnosis is fatigue of unknown etiology, likely a viral syndrome. Follow-up with your PCP in the next 1 to 3 days. Return if any worsening symptoms. Treat with [id number] analgesia medications and hydration. Referrals: None,Stated [Primary Care Provider] - 1-2 days Forms: Area PCPs
[2024-04-29 11:18] LABS: ALT 31 U/L (4-34); AST 33 U/L (14-36); African American GFR (CKD) 78 (>60 ml/min/1.73 sqM); Albumin 4.6 g/dL (3.5-5.0); Alkaline Phosphatase 47 U/L (38-126); Anion Gap 12 mmol/L; Blood Urea Nitrogen 13 mg/dL (7-17); Calcium 10.4 mg/dL (8.4-10.2); Carbon Dioxide 23 mmol/L (22-30); Chloride 102 mmol/L (98-107); Glucose 143 mg/dL (74-99); Magnesium 1.9 mg/dL (1.6-2.3); Non-African American GFR(CKD) 67 (>60 ml/min/1.73 sqM); Potassium 4.2 mmol/L (3.5-5.1); Sodium 137 mmol/L (137-145); Total Bilirubin 0.7 mg/dL (0.2-1.3); Total Protein 7.4 g/dL (6.3-8.2)
[2024-04-29 11:21] LABS: Partial Thromboplastin Time 22.5 sec (22.0-30.0); Prothrombin Time 11.5 sec (10.0-12.5)
[2024-04-29 11:37] LABS: Influenza A Not Detected (Not Detectd); Influenza B Not Detected (Not Detectd); RSV Not Detected (Not Detectd)
--- NOTE | 2024-04-29 11:44 | XR ---
EXAMINATION TYPE: XR chest 2V DATE OF EXAM: 04/29/2024 11:38 AM COMPARISON: Chest radiographs from 11/28/2016 CLINICAL INDICATION: Female, 68 years old with history of Weakness; [facility] TECHNIQUE: XR chest 2V Frontal and lateral views of the chest. FINDINGS: Lungs/Pleura: There is no evidence of pleural effusion, focal consolidation, or pneumothorax. Pulmonary vascularity: Unremarkable. Heart/mediastinum: Cardiomediastinal silhouette is unremarkable. Musculoskeletal: No acute osseous pathology. Cholecystectomy clips. IMPRESSION: No acute cardiopulmonary disease/process. [facility], , 04/29/2024 11:42 AM
[2024-04-29] MEDS: SODIUM CHLORIDE 0.9% 1,000 ML IV ONE (13:04)
[2024-04-29 13:37] LABS: Appearance,Urine Clear (Clear); Bilirubin,Urine Negative (Negative); Blood,Urine Negative (Negative); Color,Urine Yellow; Glucose,Urine (UA) Negative (Negative); Ketones,Urine Negative (Negative); Leukocyte Esterase,Urine Negative (Negative); Nitrite,Urine Negative (Negative); Protein,Urine Negative (Negative); Urobilinogen,Urine <2.0 mg/dL (<2.0)
[2024-04-29 15:00] VITALS: BP 148/81; PULSE 73; RESP 18
== END 2024-04-29 15:00 | disposition home or self-care (01) ==
LOC: EC 10:31
DX: B34.9 Viral infection, unspecified (principal); Z88.6 Allergy status to analgesic agent; Z88.5 Allergy status to narcotic agent
CPT/HCPCS: 36415; 71046; 80053; 81003; 83735; 84443; 84484; 85025; 85610; 85730; 87636; 96360; 99285